=== PATIENT | female | born 1945 | race Caucasian/White ===

== ENCOUNTER 2022-12-22 20:50 | Observation (INO) | payer OTHER, BC ==
[2022-12-22 21:18] LABS: HEMATOCRIT 37.5 % (32.4-45.2); HEMOGLOBIN 12.3 G/dL (10.7-15.3); MCH 30.5 pg (25.7-33.7); MCHC 32.9 g/dl (32.0-36.0); MEAN CELL VOLUME 92.7 fl (80-96); MEAN PLT VOLUME 7.7 fl (7.5-11.1); PLATELET COUNT 249.8 10^3/uL (134-434); RBC 4.05 10^6/uL (3.60-5.2); RDW 15.6 % (11.6-15.6); WHITE BLOOD COUNT 6.1 10^3/uL (4.0-10.8)
[2022-12-22 22:22] LABS: CALCIUM 8.9 mg/dL (8.5-10.1)
[2022-12-22 22:23] LABS: ALBUMIN 3.7 g/dl (3.4-5.0); MAGNESIUM 1.8 mg/dL (1.8-2.4)
[2022-12-22 22:26] LABS: CREATININE 0.8 mg/dL (0.55-1.3); PHOSPHOROUS 3.8 mg/dL (2.5-4.9)
[2022-12-22 22:27] LABS: BILIRUBIN,TOTAL 0.5 mg/dL (0.2-1)
[2022-12-23] MEDS ORDERED: DOCUSATE SODIUM 100 MG CAPSULE (FP) PO PRN (00:23)
[2022-12-23] MEDS ORDERED: ACETAMINOPHEN 1000 MG/100 ML BAG IVPB PRN (00:31)
[2022-12-23] MEDS ORDERED: SODIUM CHLORIDE 1,000 ML IV SCH (00:45)
[2022-12-23 01:09] VITALS: BMI 26.2
[2022-12-23 08:25] LABS: INR 1.01 (0.83-1.09); PROTHROMBIN TIME (PATIENT) 11.7 SEC (9.7-13.0)
[2022-12-23 08:26] LABS: ACTIVATED PTT 26.2 SECONDS (25.2-36.5)
[2022-12-23 09:30] LABS: EOS % 2.6 % (0-4.5); HEMATOCRIT 31.2 % (32.4-45.2); HEMOGLOBIN 10.8 GM/dL (10.7-15.3); LYMPH % 30.1 % (8-40); MCH 31.1 pg (25.7-33.7); MCHC 34.6 g/dl (32.0-36.0); MEAN CELL VOLUME 89.7 fl (80-96); MEAN PLT VOLUME 7.9 fl (7.5-11.1); NEUT % 61.3 % (42.8-82.8); PLATELET COUNT 221 10^3/uL (134-434); POTASSIUM 3.8 mmol/L (3.5-5.1); RBC 3.47 M/mm3 (3.60-5.2); RDW 15.1 % (11.6-15.6); WHITE BLOOD COUNT 3.6 K/mm3 (4.0-10.0)
[2022-12-23 09:51] LABS: BLOOD UREA NITROGEN 16.2 mg/dL (7-18); CALCIUM 8.4 mg/dL (8.5-10.1)
[2022-12-23 09:54] LABS: CREATININE 0.6 mg/dL (0.55-1.3)
[2022-12-23] MEDS ORDERED: PROPRANOLOL HCL 80 MG PO SCH (10:00)
[2022-12-23] MEDS ORDERED: METHOTREXATE 2.5 MG TABLET PO SCH (10:00)
[2022-12-23] MEDS: LOSARTAN POTASSIUM 50 MG TABLET PO SCH (10:17)
[2022-12-23] MEDS: FOLIC ACID 1 MG TABLET (FP) PO SCH (10:17)
[2022-12-23] MEDS: methylPREDNISolone 4 MG TABLET PO SCH (10:17)
[2022-12-23] MEDS: ENOXAPARIN NA (PORCINE) 40 MG/0.4 ML DISP.SYRIN SQ SCH (10:18)
[2022-12-23] MEDS ORDERED: ATORVASTATIN CA 10 MG TABLET (FP) PO SCH (22:00)
[2022-12-24] MEDS ORDERED: ACETAMINOPHEN 325 MG TABLET (FP) PO PRN (00:23)
[2022-12-24 02:03] VITALS: RESP 18
[2022-12-24 09:29] VITALS: BP 144/65; PULSE 60; TEMP 98
[2022-12-24] MEDS: methylPREDNISolone 4 MG TABLET PO SCH (09:57)
[2022-12-24] MEDS: LOSARTAN POTASSIUM 50 MG TABLET PO SCH (09:57)
[2022-12-24] MEDS: ENOXAPARIN NA (PORCINE) 40 MG/0.4 ML DISP.SYRIN SQ SCH ×2 (09:57→10:01)
[2022-12-24] MEDS: FOLIC ACID 1 MG TABLET (FP) PO SCH (09:57)
[2022-12-24] MEDS ORDERED: CYANOCOBALAMIN 1,000 MCG TABLET (FP) PO SCH (10:00)
[2022-12-24] MEDS ORDERED: HYDROCHLOROTHIAZIDE 12.5 MG CAPSULE (FP) PO SCH (10:00)
== END 2022-12-24 11:37 | disposition home or self-care (01) ==
LOC: FER 20:50 → FM/S 23:49
PROVIDERS: ADMIT Internal Medicine; ATTEND Nurse Practitioner Family
DX: R55 Syncope and collapse (principal); W18.39XA Other fall on same level, initial encounter; Y93.89 Activity, other specified; Y92.000 Kitchen of unspecified non-institutional (private) residence as the place of occurrence of the external cause; I10 Essential (primary) hypertension; E78.00 Pure hypercholesterolemia, unspecified; M35.3 Polymyalgia rheumatica; G25.0 Essential tremor
CPT/HCPCS: 36415; 70450-TC; 71045-TC-FY; 80048; 80053; 80061; 81003; 81015; 82550; 82607; 83735; 84100; 84443; 84484; 85025; 85027; 85610; 85730; 93005; 93306-TC; 93880-TC; 97116-GP; 97161-GP; 99285-25; G0378

== ENCOUNTER 2023-08-03 07:10 | Emergency (ER) | payer OTHER, BC ==
[2023-08-03 07:22] VITALS: TEMP 97.9; BMI 27.4
[2023-08-03] MEDS ORDERED: ACETAMINOPHEN INJECTION 100 ML IVPB ONE (07:35)
[2023-08-03] MEDS: LACTATED RINGERS SOLUTION 1000 ML INFUS.BAG IV ONE (07:47)
[2023-08-03] MEDS: ACETAMINOPHEN 1000 MG/100 ML BAG IVPB ONE (07:47)
[2023-08-03 07:49] VITALS: BP 169/88; PULSE 60; RESP 16
[2023-08-03 08:11] LABS: HEMATOCRIT 41.2 % (32.4-45.2); HEMOGLOBIN 13.1 G/dL (10.7-15.3); MCH 29.9 pg (25.7-33.7); MCHC 31.9 g/dl (32.0-36.0); MEAN CELL VOLUME 93.8 fl (80-96); MEAN PLT VOLUME 8.5 fl (7.5-11.1); PLATELET COUNT 342.9 10^3/uL (134-434); RBC 4.39 10^6/uL (3.60-5.2); RDW 15.2 % (11.6-15.6); WHITE BLOOD COUNT 7.5 10^3/uL (4.0-10.8)
[2023-08-03 08:24] LABS: EPITHELIAL CELLS 0-5 /hpf
[2023-08-03 08:25] LABS: ALBUMIN 4.3 g/dl (3.4-5.0); ALK PHOS 57 U/L (45-117); ANION GAP 9 mmol/L (4-13); BILIRUBIN,TOTAL 0.5 mg/dl (0.2-1); CALCIUM 9.6 mg/dl (8.5-10.1); CHLORIDE 102 mmol/L (98-107); CO2 28 mmol/L (21-32); CREATININE 0.9 mg/dl (0.6-1.3); GLUCOSE,RANDOM 101 mg/dl (74-106); POTASSIUM 3.9 mmol/L (3.5-5.1); SGOT/AST 21 U/L (15-37); SGPT/ALT 17 U/L (7-52); SODIUM 139 mmol/L (136-145); TOT PROT 6.7 g/dl (6.4-8.2)
[2023-08-03 08:43] LABS: PLATELET ESTIMATE ADEQUATE
== END 2023-08-03 09:23 | disposition home or self-care (01) ==
LOC: FER 07:10
DX: Z04.3 Encounter for examination and observation following other accident (principal); W01.198A Fall on same level from slipping, tripping and stumbling with subsequent striking against other object, initial encounter
CPT/HCPCS: 36415; 70450-TC; 72125-TC; 80053; 81003; 81015; 84484; 85027; 87086; 93005; 99285-25; J0131